=== PATIENT | female | born 1965 | race Caucasian/White ===

== ENCOUNTER 2018-11-06 21:22 | Emergency (ER) | payer SELFPAY ==
[~2018-11-06] VITALS: Wt 64.1 kg
[~2018-11-06 21:22] MED LIST: ALBU8.5H8 INH; NAPR-985 PO
--- NOTE | 2018-11-07 03:28 | ERD ---
ER Documentation Chief Complaint Chief Complaint DIZZY X'S 2 DAYS HPI The patient is a 53-year-old female, resenting to the ER because of acute dizziness for the last few day, she feels as if the room is spinning, denies similar symptoms previously, denies headache, neck pain, chest pain, dyspnea, complains of nausea but no vomiting, dysuria, diarrhea. She does not smoke nor drink Past medical/surgical history: None ROS All systems reviewed and are negative except as per history of present illness. Medications Home Meds Active Scripts Naproxen* (Naprosyn*) 500 Mg Tablet, 500 MG PO BID PRN for PAIN AND/OR INFLAMMATION, #30 TAB Prov:LUIS LASSITER MD 10/02/18 Albuterol Sulfate* (Proair HFA*) 8.5 Gm Hfa.aer.ad, 2 PUFF INH Q6H PRN for WHEEZING AND SOB, #1 INHALER Prov:LUIS LASSITER MD 10/02/18 Allergies Allergies: Coded Allergies: No Known Allergy (Unverified , 10/02/18) PMhx/Soc Hx Alcohol Use: No Hx Substance Use: No Hx Tobacco Use: No Physical Exam Vitals Vital Signs Date Temp Pulse Resp B/P (MAP) Pulse Ox O2 O2 Flow FiO2 Time Delivery Rate 11/07/18 97.9 59 14 185/99 100 Room Air 03:30 (127) 11/06/18 97.5 64 18 185/90 99 21:45 (121) Physical Exam Const: No acute distress. Head: Atraumatic. Eyes: Normal Conjunctiva. ENT: Normal External Ears, Nose and Mouth. Bilateral tympanic membrane obscured with moderate amount of cerumens Neck: Full range of motion. No meningismus. Resp: Clear to auscultation bilaterally. Cardio: Regular rate and rhythm. Abd: Soft, non distended, normal bowel sounds, non tender. Skin: No petechiae or rashes. Back: No midline or flank tenderness. Ext: No cyanosis, or edema. Neur: Awake and alert. No focal deficit Psych: Normal Mood and Affect. Results 24 hrs Current Medications Medications Dose Sig/Coretta Start Time Status Last (Trade) Ordered Route PRN Stop Time Admin Dose Reason Admin Ondansetron 4 mg ONCE STAT 11/07/18 DC 11/07/18 HCl (Zofran ODT 03:33 11/07/18 03:49 Odt) 03:35 Meclizine 25 mg ONCE ONCE 11/07/18 DC 11/07/18 HCl PO 04:00 11/07/18 03:49 (Antivert) 04:01 Procedures/MDM EKG: Read by emergency physician Rate/Rhythm: Normal Sinus Rhythm 61 beats/min QRS, ST, T-waves: No ST elevation, no T inversion, anterior T abnormality Impression: Abnormal EKG Brain CT is pending MEDICAL MAKING DECISION: The patient is a 53-year-old female, presenting with acute illness, most likely due to acute benign positional vertigo, was treated with Antivert and Zofran with good response The differential diagnoses considered include but are not limited to central causes such as cerebellar infarct, cerebellar hemorrhage, cerebellar tumor, acoustic neuroma, peripheral causes such as benign positional vertigo, labyrinthitis, medication, Meniere's disease. Departure Diagnosis: Primary Impression: Dizziness Condition: Good Comments The patient's blood pressure was elevated (>120/80) but appears stable without evidence of hypertension emergency or urgency. The patient was counseled about the risks of hypertension and urged to pursue outpatient monitoring and therapy within a week with their primary care physician. If the brain CT scan is negative, she will be discharged with Antivert I discussed the findings with the patient. I advised the patient to follow-up with the primary physician in about 2-3 days, sooner if needed and return if any concern. Disclaimer: Inadvertent spelling and grammatical errors are likely due to EHR/dictation software use and do not reflect on the overall quality of patient care. Also, please note that the electronic time recorded on this note does not necessarily reflect the actual time of the patient encounter. ARACELI COLMENARES MD Nov 07, 2018 03:28
[2018-11-07] MEDS ORDERED: ONDANSETRON (ODT) 4 MG TAB ODT STA (03:33)
[2018-11-07] MEDS ORDERED: MECLIZINE 12.5 MG TAB PO ONE (04:00)
[2018-11-07] MEDS ORDERED: MECL12.574 PO (05:18)
[2018-11-07] MEDS ORDERED: AMLO5TAB4 PO (05:49)
[2018-11-07] MEDS ORDERED: AMLODIPINE 5 MG TAB PO ONE (06:00)
[2018-11-07 06:15] VITALS: BP 163/88; PULSE 65; RESP 13
== END 2018-11-07 06:15 | disposition home or self-care (01) ==
LOC: E/R 21:22
DX: R42 Dizziness and giddiness (principal); R40.2142 Coma scale, eyes open, spontaneous, at arrival to emergency department; R40.2252 Coma scale, best verbal response, oriented, at arrival to emergency department; R40.2362 Coma scale, best motor response, obeys commands, at arrival to emergency department
CPT/HCPCS: 70450; 93005